=== PATIENT | male | born 1985 | race Caucasian/White ===

== ENCOUNTER 2016-03-31 20:38 | Emergency (ER) | payer SELFPAY ==
[~2016-03-31] VITALS: Ht 180.3 cm; Wt 72.6 kg
[~2016-03-31 20:38] MED LIST: ACHD5005 PO; AGM875T PO; AMOX500C2 PO; ATEN50TA PO; BUTA1CAP39 PO; CEFU250T11 PO; CEFU500T5 PO; CEPH500C PO; CETI10CA PO; CYCL10TA9 PO; FAMO-119 PO; FLUO10CA29 PO; LIDO20SO20 PO; METH4TAB PO; MTP25TSR PO; NAPR-243 PO; ONDA8TAB13 PO; ONDN4T PO; PRD20T PO; [UNRECOGNIZED DRUG - CODE] PO; [UNRECOGNIZED DRUG - OTHER]
[2016-03-31] MEDS ORDERED: METH4TAB PO (21:49)
[2016-03-31] MEDS ORDERED: FLUT9.9S NS (21:49)
[2016-03-31] MEDS ORDERED: AMOX-358 PO (21:49)
[2016-03-31] MEDS ORDERED: LORA1TAB59 PO (21:49)
--- NOTE | 2016-03-31 21:49 | ED Cough/URI ---
General Chief Complaint: Cough/Cold/Flu Symptoms Stated Complaint: BP ISSUES/HEADACHE Nursing Triage Note: PT REPORTS HEADACHE/CONGESTION X 2 DAYS. PT REPORTS HE HAS HX OF HYPERTEBNSION AND IS UNSURE IF IT IS ELEVATED. Source: patient History of Present Illness Time seen by provider: 21:35 Initial Comments PT C/O HEADACHE X 2 DAYS--FRONTAL AND OCCIPITAL C/O NON-PRODUCTIVE COUGH, NASAL CONGESTION AND SINUS PRESSURE, WATERY EYES X 2 DAYS NO FEVER NO CHEST PAIN NO SHORTNESS OF BREATH NO VISION CHANGES PT STATES ALL OTHER HOUSEHOLD MEMBERS ARE ALSO SICK WITH COLD SYMPTOMS PT STATES HE HAS HAD HEADACHES LIKE THIS IN PAST PT HAS HTN AND THOUGHT MAYBE HIS BP WAS ELEVATED, BUT HAS NOT CHECKED IT AT HOME PT ALSO STATES HE QUIT TAKING PROZAC X 1 MONTH PCP: ANDREY-MAE TAYLOR Allergies and Home Medications Allergies Coded Allergies: No Known Drug Allergies (Verified , 12/07/10) Home Medications Amoxicillin/Potassium Clav 1 Each Tablet #20 1 EACH PO BID Prescribed by: RALPH CAPELLAN on 03/31/162148 Atenolol 50 Mg Tablet 30Days 1 EACH PO DAILY Prescribed by: RANDY PHILLIPS on 09/12/12 234 Fluoxetine HCl 10 Mg Capsule 10 MG PO DAILY (Reported) Fluticasone Propionate 9.9 Ml [place].susp #1 2 SPRAYS NS BID Prescribed by: RALPH CAPELLAN on 03/31/162148 Loratadine/Pseudoephedrine 1 Each Tab.er.12h #20 1 EACH PO BID Prescribed by: RALPH CAPELLAN on 03/31/162148 Methylprednisolone 4 Mg Tab.ds.pk #1 4 MG PO UD Prescribed by: RALPH CAPELLAN on 03/31/162148 Constitutional: no symptoms reported EENTM: see HPI Respiratory: see HPI Cardiovascular: no symptoms reported Gastrointestinal: no symptoms reported Genitourinary: no symptoms reported Musculoskeletal: no symptoms reported Skin: no symptoms reported Psychiatric/Neurological: See HPI Headache Hematologic/Lymphatic: No Symptoms Reported Immunological/Allergic: no symptoms reported Past Iydtjkn-Qkdihn-Wrsgnv Hx Patient Social History Alcohol Use: Rarely Uses Recreational Drug Use: No Drug of Choice: MARIJUANA Smoking Status: Current Everyday Smoker Type Used: Cigarettes Recent Foreign Travel: No Contact w/Someone Who Travel: No Recent Infectious Disease Expo: No Recent Hopitalizations: No Physical Abuse Screen: No Sexual Abuse: No Immunizations Up To Date Tetanus Booster (TDap): Less than 5yrs Seasonal Allergies Seasonal Allergies: No Surgeries HX Surgeries: Yes Surgeries: Adenoidectomy, Tonsillectomy Respiratory Hx Respiratory Disorders: No Cardiovascular Hx Cardiac Disorders: Yes Cardiac Disorders: Hypertension Neurological Hx Neurological Disorders: Yes Neurological Disorders: Headaches /Migraines Reproductive System Hx Reproductive Disorders: No Sexually Transmitted Disease: No Genitourinary Hx Genitourinary Disorders: No Gastrointestinal Hx Gastrointestinal Disorders: No Musculoskeletal Hx Musculoskeletal Disorders: No Endocrine Hx Endocrine Disorders: No HEENT HX ENT Disorders: No HEENT Disorders: Tonsilitis Cancer Hx Cancer: No Psychosocial Hx Psychiatric Problems: Yes Behavioral Health Disorders: Anxiety Integumentary HX Skin/Integumentary Disorder: No Blood Transfusions Hx Blood Disorders: No Family Medical History Significant Family History: No Pertinent Family Hx Physical Exam Vital Signs Vital Sign - Last 12Hours 03/31/16 03/31/16 20:52 20:56 Temp 97.3 Pulse 78 Resp 18 B/P 113/82 Pulse Ox 98 O2 Delivery Room Air Capillary Refill : Less Than 3 Seconds General Appearance: WD/WN no apparent distress HEENT: PERRL/EOMI TMs normal other (NASAL MUCOSAL EDEMA, CLEAR RHINORRHEA AND POST NASAL DRAINAGE. + MAXILLARY SINUS TENDERNESS. ) Neck: non-tender full range of motion supple normal inspection Respiratory: normal breath sounds no respiratory distress no accessory muscle use Cardiovascular: normal peripheral pulses regular rate, rhythm no edema no JVD no murmur Gastrointestinal: normal bowel sounds non tender soft Extremities: normal inspection Neurologic/Psychiatric: policy checker II-XII nml as tested no motor/sensory deficits alert normal mood/affect oriented x 3 Skin: normal color warm/dry Progress/Results/Core Measures Results/Orders My Orders Orders-RALPH CAPELLAN DO Ketorolac Injection (Toradol Injection) (03/31/16 22:00) Amoxicillin/Clavulanate Tablet (Augmenti (03/31/16 22:00) Medications Given in ED Current Medications Medications Dose Ordered Sig/Ana Route Start Time Stop Time Status Last Admin Dose Admin Ketorolac Tromethamine 60 mg ONCE ONCE IM 03/31/16 22:00 03/31/16 22:01 DC 03/31/16 22:11 60 MG Vital Signs/I&O Vital Sign - Last 12Hours 03/31/16 03/31/16 03/31/16 20:52 20:56 22:15 Temp 97.3 97.3 Pulse 78 60 Resp 18 16 B/P 113/82 Pulse Ox 98 99 O2 Delivery Room Air Room Air Blood Pressure Mean: 92 Departure Impression Impression: Primary Impression: Sinusitis Additional Impression: Tension type headache Disposition: 01 HOME, SELF-CARE Condition: Stable Departure-Patient Inst. Referrals: [facility] (PCP/Family) Primary Care Physician Patient Instructions: Sinus Headache (DC), Sinusitis, Adult (DC), Tension Headache (DC) Add. Discharge Instructions: LOTS OF CLEAR LIQUIDS TYLENOL AND MOTRIN NEEDED FOR PAIN FOLLOW UP WITH [facility] IN 2-3 DAYS IF NO BETTER All discharge instructions reviewed with patient and/or family. Voiced understanding. Scripts Methylprednisolone (Medrol)4 Mg Tab.ds.pk4 Mg PO UD #1 PKG Prov:RALPH CAPELLAN DO 03/31/16 Fluticasone Propionate (Flonase Allergy Relief)9.9 Ml [place].susp2 Sprays NS BID #1 SPRAY Prov:RALPH CAPELLAN DO 03/31/16 Loratadine/Pseudoephedrine (Claritin-D 12 Hour Tablet)1 Each Tab.er.12h1 Each PO BID #20 TAB Prov:RALPH CAPELLAN DO 03/31/16 Amoxicillin/Potassium Clav (Augmentin 875-125 Tablet)1 Each Tablet1 Each PO BID INFECTION #20 TAB Prov:RALPH CAPELLAN DO 03/31/16 RALPH CAPELLAN DO Mar 31, 2016 21:49
[2016-03-31] MEDS ORDERED: AUGMENTIN 875 MG TAB (AMOXICILLIN/CLAVULANATE) PO SCH (22:00)
[2016-03-31] MEDS ORDERED: KETOROLAC 60 MG/2 ML VIAL IM ONE (22:00)
[2016-03-31 22:15] VITALS: BP 137/89
== END 2016-03-31 22:15 | disposition home or self-care (01) ==
LOC: EDUNIT# 20:38 → ER 20:39
DX: J01.90 Acute sinusitis, unspecified (principal); G44.209 Tension-type headache, unspecified, not intractable; I10 Essential (primary) hypertension; F17.210 Nicotine dependence, cigarettes, uncomplicated
CPT/HCPCS: 96372; 99284

== ENCOUNTER 2021-08-25 11:04 | Emergency (ER) | payer SELFPAY ==
[~2021-08-25] VITALS: Ht 182 cm; Wt 63.0 kg
[~2021-08-25 11:04] MED LIST changes: +AMOX-358 PO; +CYCL10TA25 PO; +FLUT9.9S NS; +LORA1TAB59 PO
--- NOTE | 2021-08-25 11:42 | ED EENT ---
History of Present Illness General Chief Complaint: Ear Problems Stated Complaint: L EAR PAIN, DIFFICULTY HEARING Nursing Triage Note: PT TO ED W/ C/O LT EAR PAIN. REPORTS EAR IS PAINFUL ET UNABLE TO HEAR AT THIS TIME. DENIES INJURY AT THIS TIME. NO OTHER C/O VOICED. Source: patient Exam Limitations: no limitations History of Present Illness Date Seen by Provider: August 25, 2021 Time Seen by Provider: 11:39 Initial Comments To ER with difficulty hearing from the left ear and it is painful. Timing/Duration: abrupt Severity: moderate Prearrival Treatment: no prearrival treatment Associated Symptoms: denies symptoms Allergies and Home Medications Allergies Coded Allergies: No Known Drug Allergies (Verified , 12/07/10) Patient Home Medication List Home Medication List Reviewed: Yes Amoxicillin/Potassium Clav (Augmentin 875-125 Tablet) 1 Each Tablet, 1 EACH PO BID Prescribed by: RALPH CAPELLAN on 03/31/162148 Atenolol (Tenormin 50 Mg) 50 Mg Tablet, 1 EACH PO DAILY Prescribed by: RANDY PHILLIPS on 09/12/12 2343 Fluoxetine HCl (Prozac) 10 Mg Capsule, 10 MG PO DAILY, (Reported) Entered as Reported by: MECHE CAMPBELL on 08/01/15 0943 Fluticasone Propionate (Flonase Allergy Relief) 9.9 Ml [place].susp, 2 SPRAYS NS BID Prescribed by: RALPH CAPELLAN on 03/31/162148 Loratadine/Pseudoephedrine (Claritin-D 12 Hour Tablet) 1 Each Tab.er.12h, 1 EACH PO BID Prescribed by: RALPH CAPELLAN on 03/31/162148 Methylprednisolone (Medrol) 4 Mg Tab.ds.pk, 4 MG PO UD Prescribed by: RALPH CAPELLAN on 03/31/162148 Review of Systems Review of Systems Constitutional: see HPI Eyes: No Symptoms Reported Ears: See HPI Nose: no symptoms reported Mouth: no symptoms reported Throat: no symptoms reported Respiratory: no symptoms reported Cardiovascular: no symptoms reported Musculoskeletal: no symptoms reported Skin: no symptoms reported Past Dieinww-Yrchji-Gmevws Hx Patient Social History Tobacco Use?: Yes Tobacco type used: Cigarettes Smoking Status: Current Everyday Smoker Use of E-Cig and/or Vaping dev: No Substance use?: Yes Substance type: Marijuana Additional substance use comme: LAST SMOKED X2 DAYS AGO Alcohol Use?: No Pt feels they are or have been: No Immunizations Up To Date Tetanus Booster (TDap): Less than 5yrs Seasonal Allergies Seasonal Allergies: No Past Medical History Surgery/Hospitalization HX: TONSILLECTOMY, HEAT STROKE Adenoidectomy, Tonsillectomy Hypertension Headaches /Migraines Reproductive Disorders: No Sexually Transmitted Disease: No Tonsilitis Anxiety Family Medical History No Pertinent Family Hx Physical Exam Vital Signs Vital Signs - First Documented 08/25/21 11:15 Temp 36.9 Pulse 101 Resp 98 B/P (MAP) 146/104 (118) O2 Delivery Room Air Height, Weight, BMI Height: 5'11" Weight: 160lbs. oz. [id number]; 19.00 BMI Method:Stated General Appearance: WD/WN, no apparent distress Eyes: bilateral eye normal inspection, bilateral eye PERRL, bilateral eye EOMI Ears: bilateral ear auricle normal, bilateral ear other (Bilateral cerumen impaction left greater than right. This was removed with irrigation with warm water and peroxide and curette. This revealed a very minimally erythematous tympanic membrane on the left, normal on the right. He reported significant improvement in symptoms and I will withhold antibiotics at this time for that reason.) Neck: non-tender, full range of motion Respiratory: normal breath sounds, no respiratory distress, no accessory muscle use Neurologic/Psychiatric: alert, normal mood/affect, oriented x 3 Progress/Results/Core Measures Results/Orders Vital Signs/I&O 08/25/21 11:15 Temp 36.9 Pulse 101 Resp 98 B/P (MAP) 146/104 (118) O2 Delivery Room Air Blood Pressure Mean: 118 Departure Impression Primary Impression: Impacted cerumen Disposition: 01 HOME, SELF-CARE Condition: Stable Departure-Patient Inst. Decision time for Depature: 11:41 Referrals: [facility] (PCP/Family) Primary Care Physician Patient Instructions: Ear Wax Impaction (DC) Add. Discharge Instructions: All discharge instructions reviewed with patient and/or family. Voiced understanding. JESS SHAY APRN August 25, 2021 11:42
[2021-08-25 11:55] VITALS: BP 153/108
== END 2021-08-25 11:55 | disposition home or self-care (01) ==
LOC: EDUNIT# 11:04 → ER 11:06
DX: H61.22 Impacted cerumen, left ear (principal); F17.210 Nicotine dependence, cigarettes, uncomplicated
CPT/HCPCS: 99282